=== PATIENT | female | born 1955 | race Caucasian/White ===

== ENCOUNTER 2017-07-21 06:09 | Inpatient (IN) ==
[~2017-07-21 06:09] MED LIST: VANCOMYCIN 1,000 MG VIAL ONE; ceFAZolin 1,000 MG VIAL ONE
[2017-07-21] MEDS ORDERED: VANCOMYCIN INJ 1,000 MG in SODIUM CHLORIDE 0.9% 250 ML IV ONE (06:30)
[2017-07-21] MEDS ORDERED: ceFAZolin 1,000 MG in SYRINGE 1 EACH IV ONE (06:30)
[2017-07-21] MEDS ORDERED: TRANEXAMIC ACID 1,000 MG/10 ML VIAL ONE (06:32)
[2017-07-21] MEDS ORDERED: LACTATED RINGERS 1,000 ML IV SCH (06:40)
[2017-07-21] MEDS ORDERED: BUPIVACAINE SPINAL 0.75% 2 ML AMP SPINAL ONE (06:48)
[2017-07-21] MEDS ORDERED: MORPHINE 10 MG/10 ML VIAL ONE (06:49)
[2017-07-21] MEDS ORDERED: ROPIVACAINE 0.5% 30 ML VIAL ONE ×2 (07:52→08:36)
[2017-07-21] MEDS ORDERED: BACITRACIN OINT 0.9 GM PACK TOP ONE (07:53)
[2017-07-21] MEDS ORDERED: METHOCARBAMOL 750 MG TABLET PO PRN (08:30)
[2017-07-21] MEDS ORDERED: ALPRAZolam 0.25 MG TABLET PO PRN (08:30)
[2017-07-21] MEDS ORDERED: diphenhydrAMINE CAP 25 MG CAPSULE PO PRN (08:31)
[2017-07-21] MEDS ORDERED: oxyCODONE IR 5 MG TABLET PO PRN ×2 (08:31)
[2017-07-21] MEDS ORDERED: MORPHINE 4 MG/1 ML VIAL IV PRN ×2 (08:31)
[2017-07-21] MEDS ORDERED: ZALEPLON 5 MG CAPSULE PO PRN (08:31)
[2017-07-21] MEDS ORDERED: MAGNESIUM HYDROXIDE SUSP 30 ML UDCUP PO PRN (08:31)
[2017-07-21] MEDS ORDERED: ONDANSETRON 4 MG/2 ML VIAL IV PRN (08:39)
[2017-07-21] MEDS ORDERED: diphenhydrAMINE 50 MG/1 ML VIAL IV PRN (08:39)
[2017-07-21] MEDS ORDERED: hydrOXYzine HCL 25 MG/1 ML VIAL IM PRN (08:39)
[2017-07-21] MEDS ORDERED: fentaNYL 100 MCG/2 ML VIAL ONE (09:00)
[2017-07-21] MEDS ORDERED: PHENYLEPHRINE 10 MG/1 ML VIAL IV ONE (09:00)
[2017-07-21] MEDS ORDERED: ACETAMINOPHEN 1,000 MG/100 ML VIAL IV ONE (09:00)
[2017-07-21] MEDS ORDERED: MIDAZOLAM 2 MG/2 ML VIAL ONE (09:00)
[2017-07-21] MEDS ORDERED: KETAMINE 500 MG/10 ML VIAL ONE (09:00)
[2017-07-21] MEDS ORDERED: SODIUM CHLORIDE 0.9% 100 ML IV ONE (09:00)
[2017-07-21] MEDS ORDERED: PROPOFOL 200 MG/20 ML VIAL IV ONE (09:00)
[2017-07-21] MEDS ORDERED: LACTATED RINGERS 1,000 ML IV ONE (09:01)
[2017-07-21] MEDS ORDERED: ONDANSETRON 4 MG/2 ML VIAL ONE (09:12)
[2017-07-21] MEDS: ONDANSETRON 4 MG/2 ML VIAL IV PRN (09:15)
[2017-07-21] MEDS: LACTATED RINGERS 1,000 ML IV SCH ×2 (09:43→18:45)
[2017-07-21] MEDS: KETOROLAC 30 MG/1 ML VIAL IV SCH ×3 (10:00→21:11)
[2017-07-21] MEDS: DOCUSATE SODIUM 100 MG CAPSULE PO SCH ×2 (10:02→21:10)
[2017-07-21] MEDS: CYANOCOBALAMIN 500 MCG TABLET PO SCH (10:03)
[2017-07-21] MEDS: CHOLECALCIFEROL 1,000 UNIT TABLET PO SCH (10:06)
[2017-07-21] MEDS: SERTRALINE 50 MG TABLET PO SCH (10:07)
[2017-07-21] MEDS ORDERED: PROMETHAZINE 25 MG/1 ML VIAL IM ONE (10:42)
[2017-07-21] MEDS ORDERED: cloNIDine 0.1 MG TABLET PO PRN (13:42)
[2017-07-21] MEDS ORDERED: HydrOXYzine PAMOATE 25 MG CAPSULE PO ONE (13:55)
[2017-07-21] MEDS: ACETAMINOPHEN 500 MG TABLET PO SCH ×2 (15:15→21:10)
[2017-07-21] MEDS: ceFAZolin 2,000 MG in PREMIX 1 EACH IV SCH ×2 (15:16→23:28)
[2017-07-22] MEDS: LACTATED RINGERS 1,000 ML IV SCH (02:20)
[2017-07-22] MEDS: ACETAMINOPHEN 500 MG TABLET PO SCH ×2 (03:32→09:00)
[2017-07-22] MEDS: KETOROLAC 30 MG/1 ML VIAL IV SCH (03:33)
[2017-07-22 05:37] LABS: Basophils % 0.2 % (0.0-0.8); Eosinophils # 0.3 10*3/uL (0.0-0.87); Eosinophils % 2.4 % (0.00-10.9); Hematocrit 32.9 VOL% (35.7-47.0); Immature Granulocytes % 0.6 %; Immature Granulocytes Absolute 0.07 #; Lymphocytes # 1.4 10*3/uL (1.4-4.0); Lymphocytes % 10.7 % (21.3-54.2); Mean Corpuscular HGB Conc 33.4 GM/DL (32-36); Mean Corpuscular Hemoglobin 30 PG (27-34); Mean Corpuscular Volume 89.2 FL (87-102); Monocytes % 7.7 % (1.7-12.7); Neutrophils # 9.9 10*3/uL (1.4-7.4); Neutrophils % 78.4 % (38.7-73.9); Platelet Count 219 T/CUMM (130-400); Red Blood Count 3.69 MC/CUMM (3.8-5.5); Red Cell Distribution Width 12.8 % (9.3-17.3); White Blood Count 12.6 T/CUMM (4-12)
[2017-07-22 05:53] LABS: Calcium 8.4 MG/DL (8.5-10.1); Osmolality,Calculated 283.4 MOS/KG (273-304); Potassium 3.9 MMOL/L (3.5-5.1)
[2017-07-22] MEDS: CHOLECALCIFEROL 1,000 UNIT TABLET PO SCH (08:59)
[2017-07-22] MEDS: CYANOCOBALAMIN 500 MCG TABLET PO SCH (08:59)
[2017-07-22] MEDS: CARVEDILOL 25 MG TABLET PO SCH ×2 (09:00→21:59)
[2017-07-22] MEDS: SERTRALINE 50 MG TABLET PO SCH (09:00)
[2017-07-22] MEDS: VALSARTAN/HCTZ 160-12.5 MG TABLET PO SCH (09:02)
[2017-07-22] MEDS: DOCUSATE SODIUM 100 MG CAPSULE PO SCH ×2 (09:02→22:00)
[2017-07-22] MEDS: ONDANSETRON 4 MG/2 ML VIAL IV PRN ×2 (12:18→17:33)
[2017-07-22] MEDS: CELECOXIB 200 MG CAPSULE PO SCH (17:31)
[2017-07-22] MEDS: FONDAPARINUX 2.5 MG/0.5 ML SYRINGE SUBCUT SCH (21:59)
[2017-07-23 07:28] LABS: Basophils % 0.3 % (0.0-0.8); Eosinophils # 0.3 10*3/uL (0.0-0.87); Eosinophils % 1.8 % (0.00-10.9); Hemoglobin 10.6 GM/DL (12.0-16.0); Immature Granulocytes % 0.9 %; Immature Granulocytes Absolute 0.13 #; Lymphocytes # 1.6 10*3/uL (1.4-4.0); Lymphocytes % 11.1 % (21.3-54.2); Mean Corpuscular HGB Conc 33.1 GM/DL (32-36); Mean Corpuscular Hemoglobin 30 PG (27-34); Mean Corpuscular Volume 89.9 FL (87-102); Mean Platelet Volume 9.1 FL (9.6-12.0); Monocytes % 6.6 % (1.7-12.7); Neutrophils # 11.6 10*3/uL (1.4-7.4); Neutrophils % 79.3 % (38.7-73.9); Platelet Count 246 T/CUMM (130-400); Red Blood Count 3.56 MC/CUMM (3.8-5.5); Red Cell Distribution Width 12.4 % (9.3-17.3); White Blood Count 14.6 T/CUMM (4-12)
[2017-07-23] MEDS: ONDANSETRON 4 MG/2 ML VIAL IV PRN (09:41)
[2017-07-23] MEDS: VALSARTAN/HCTZ 160-12.5 MG TABLET PO SCH (13:14)
[2017-07-23] MEDS: CHOLECALCIFEROL 1,000 UNIT TABLET PO SCH (13:15)
[2017-07-23] MEDS: SERTRALINE 50 MG TABLET PO SCH (13:15)
[2017-07-23] MEDS: CELECOXIB 200 MG CAPSULE PO SCH (13:15)
[2017-07-23] MEDS: CARVEDILOL 25 MG TABLET PO SCH ×2 (13:15→21:42)
[2017-07-23] MEDS: CYANOCOBALAMIN 500 MCG TABLET PO SCH (13:16)
[2017-07-23] MEDS: FONDAPARINUX 2.5 MG/0.5 ML SYRINGE SUBCUT SCH (21:42)
[2017-07-24 05:36] LABS: Basophils % 0.3 % (0.0-0.8); Eosinophils # 0.4 10*3/uL (0.0-0.87); Eosinophils % 3.2 % (0.00-10.9); Hematocrit 30.1 VOL% (35.7-47.0); Hemoglobin 9.7 GM/DL (12.0-16.0); Immature Granulocytes % 0.9 %; Immature Granulocytes Absolute 0.12 #; Lymphocytes # 2.3 10*3/uL (1.4-4.0); Lymphocytes % 17.4 % (21.3-54.2); Mean Corpuscular HGB Conc 32.2 GM/DL (32-36); Mean Corpuscular Hemoglobin 30 PG (27-34); Mean Corpuscular Volume 91.8 FL (87-102); Mean Platelet Volume 9.3 FL (9.6-12.0); Monocytes % 7.7 % (1.7-12.7); Neutrophils # 9.4 10*3/uL (1.4-7.4); Neutrophils % 70.5 % (38.7-73.9); Platelet Count 252 T/CUMM (130-400); Red Blood Count 3.28 MC/CUMM (3.8-5.5); Red Cell Distribution Width 12.7 % (9.3-17.3); White Blood Count 13.3 T/CUMM (4-12)
[2017-07-24] MEDS: CARVEDILOL 25 MG TABLET PO SCH (10:03)
[2017-07-24] MEDS: VALSARTAN/HCTZ 160-12.5 MG TABLET PO SCH (10:04)
[2017-07-24] MEDS: SERTRALINE 50 MG TABLET PO SCH (10:04)
[2017-07-24] MEDS: CELECOXIB 200 MG CAPSULE PO SCH (10:04)
[2017-07-24] MEDS: CYANOCOBALAMIN 500 MCG TABLET PO SCH (10:04)
[2017-07-24] MEDS: CHOLECALCIFEROL 1,000 UNIT TABLET PO SCH (10:04)
[2017-07-24 12:14] VITALS: BP 161/68
== END 2017-07-24 14:55 | disposition home health service (06) | DRG 470 ==
LOC: N.OR 06:09 → SUPCPDRO 06:09 → N.SDSINP 06:09 → EDSTATUS 07:30 → N.3E 09:33
PROVIDERS: ADMIT Orthopaedic Surgery; ATTEND Orthopaedic Surgery